=== PATIENT | male | born 1975 | race Caucasian/White ===

== ENCOUNTER 2018-03-21 19:31 | Emergency (ER) | payer OTHER ==
--- NOTE | 2018-03-21 21:03 | RAD ---
PORTABLE AP CHEST X-RAY: 03/21/2018 HISTORY: Pain to right lateral chest wall. Chest pain. COMPARISON: None available. FINDINGS: The cardiac silhouette is magnified by projection. The pulmonary vasculature is within normal limits . There are scattered calcified granuloma seen bilaterally. There is minimal linear atelectasis lola fadi scarring at the left lung base. The lungs are otherwise clear. The osseous structures are intac t. IMPRESSION: No acute cardiopulmonary process. POS: [facility]
== END 2018-03-21 21:29 | disposition home or self-care (01) ==
LOC: ERS 19:31
DX: R07.9 Chest pain, unspecified (principal); F31.9 Bipolar disorder, unspecified; Z87.891 Personal history of nicotine dependence; Z79.899 Other long term (current) drug therapy
CPT/HCPCS: 71045; 93005

== ENCOUNTER 2018-06-17 17:24 | Emergency (ER) | payer OTHER ==
[2018-06-17] MEDS ORDERED: Ketorolac Tromethamine 60 MG/2 ML VIAL ONE (18:08)
[2018-06-17] MEDS ORDERED: Acetaminophen 500 MG TAB ONE (18:09)
--- NOTE | 2018-06-17 18:50 | RAD ---
PORTABLE AP CHEST X-RAY 06/17/18 HISTORY: Back pain more localized to the left side over rib cage. Injury. COMPARISON: 03/21/18. FINDINGS: This exam is obtained in a shallow depth of inspiration and combination with portable technique of th e study accentuates the cardiac silhouette and bronchovascular markings. There is linear and patchy d ensity at the left lung base probably related to volume loss. The lungs otherwise appear clear. No pn eumothorax or pleural effusion is evident on this exam. No other interval change. IMPRESSION: Probable volume loss left lung base. Lungs are otherwise clear aside from evidence of prior granuloma tous disease. POS: [facility]
== END 2018-06-17 19:07 | disposition home or self-care (01) ==
LOC: ERS 17:24
DX: R07.81 Pleurodynia (principal); F17.220 Nicotine dependence, chewing tobacco, uncomplicated
CPT/HCPCS: 71045; 96372; J1885

== ENCOUNTER 2018-07-19 09:22 | Outpatient (CLI) | payer OTHER ==
[2018-07-19] MEDS ORDERED: Iopamidol 370 76% 100 ML VIAL ONE (12:39)
--- NOTE | 2018-07-19 12:50 | CT ---
TWO VIEW CHEST WITH CONTRAST: HISTORY: Fractured sternum, R91.8. Abnormal chest x-ray. COMPARISON: Radiograph from 06/17/2018. FINDINGS: There is a fracture of the body of the sternum with partial healing. The manubrium is intact. Heali ng left anterior 5th, 6th, and 7th, buckle fractures. Healing posterior left 11th rib fracture. No acute thoracic spine compression fracture. Calcified granuloma right upper lobe. Calcified granuloma right middle lobe. Lung bases are clear. No pericardial effusion. Calcified granuloma left lung base. Calcified granu vaishali left upper lobe. No mediastinal adenopathy. Limited evaluation of the upper abdomen is unremarkable. IMPRESSION: 1. Healing sternal body fracture. 2. Healing left-sided rib fractures. 3. No acute abnormality of the chest. POS: [facility]
== END 2018-07-19 09:23 | disposition home or self-care (01) ==
LOC: BICCT 09:22
PROVIDERS: ATTEND Family Medicine
DX: R91.8 Other nonspecific abnormal finding of lung field (principal); S22.22XD Fracture of body of sternum, subsequent encounter for fracture with routine healing; S22.42XD Multiple fractures of ribs, left side, subsequent encounter for fracture with routine healing
CPT/HCPCS: 71260

== ENCOUNTER 2019-02-06 18:05 | Emergency (ER) | payer OTHER, SELFPAY ==
[2019-02-06] MEDS ORDERED: Meclizine HCl 25 MG TAB ONE (20:27)
[2019-02-06 20:30] LABS: #Basophils 0.1 thou/uL (0.0-0.2); #Eosinphils 0.2 thou/uL (0.0-0.7); #Lymphocytes 1.9 thou/uL (1.20-3.40); #Monocytes 0.7 thou/uL (0.11-0.59); #Neutrophils 5.8 thou/uL (1.40-6.50); %Basophils 0.6 % (0.0-1.0); %Eosinophils 1.8 % (0.0-10.0); %Lymphocytes 21.7 % (21.0-51.0); %Neutrophils 67.8 % (42.0-75.0); Hemoglobin 13.9 g/dL (14.0-18.0); Mean Corpuscular Hemoglobin 27.3 pg (27.0-31.0); Mean Corpuscular Volume 82.7 fL (78.0-98.0); Mean Platelet Volume 9.4 fL (7.4-10.4); Platelet Count 254 thou/uL (130-400); RBC Distribution Width 14.9 % (11.5-14.5); Red Blood Cell (RBC) Count 5.09 mill/uL (4.70-6.10); White Blood Cell (WBC) Count 8.6 thou/uL (4.8-10.8)
[2019-02-06] MEDS ORDERED: Ibuprofen 800 MG TAB ONE (20:37)
[2019-02-06 20:47] LABS: Bacteria/HPF None Seen HPF (None Seen); Bilirubin Negative (Negative); Blood, Urine Negative (Negative); Clarity Clear (Clear); Glucose, Urine (Dipstick) Normal (Negative); Leukocyte Negative Leu/uL (Negative); Mucous/LPF 3+ LPF (<2+); Nitrite Negative (Negative); Protein, Urine (Dipstick) 30 mg/dL (Neg-Trace); RBC/HPF 0-3 HPF (0-3); Squamous Epithelial 0-3 HPF (0-3); WBC/HPF 0-3 HPF (0-3)
[2019-02-06 20:53] LABS: ALT (SGPT) 17 U/L (8-55); AST (SGOT) 22 U/L (5-34); Albumin 4.6 g/dL (3.5-5.0); Alkaline Phosphatase 78 U/L (40-150); Anion Gap 17 mmol/L (10-20); BUN (Urea Nitrogen) 14 mg/dL (8.9-20.6); Bilirubin, Total 0.3 mg/dL (0.2-1.2); CK (CPK) 82 U/L (30-200); Calc. Creatinine Clearance 0 mL/min (70-130); Calcium 9.8 mg/dL (7.8-10.44); Carbon Dioxide 19 mmol/L (22-29); Chloride 106 mmol/L (98-107); Estimated GFR-MDRD 70; Globulin 3.6 g/dL (2.4-3.5); Glucose 88 mg/dL (70-105); Potassium 3.8 mmol/L (3.5-5.1); Protein, Total 8.2 g/dL (6.0-8.3); Sodium 138 mmol/L (136-145)
[2019-02-06 20:54] LABS: Amphetamine Not Detected (NotDetected); Barbiturates Screen Not Detected (NotDetected); Benzodiazepine Screen Not Detected (NotDetected); Cocaine Metabolite Screen Not Detected (NotDetected); Medtox Control Line Valid? VALID (VALID); Medtox Reader # READER 1; Methadone Not Detected (NotDetected); Methamphetamine Not Detected (NotDetected); Opiate Screen Not Detected (NotDetected); Oxycodone Screen Not Detected (NotDetected); Phencyclidine (PCP) Not Detected (NotDetected); THC/Cannabinoid Screen Not Detected (NotDetected); Tricyclic Screen Not Detected (NotDetected)
--- NOTE | 2019-02-08 15:42 | EKG ---
Test Reason : Blood Pressure : / mmHG Vent. Rate : 067 BPM Atrial Rate : 067 BPM P-R Int : 180 ms QRS Dur : 088 ms QT Int : 366 ms P-R-T Axes : 041 011 025 degrees QTc Int : 386 ms Normal sinus rhythm Normal ECG Confirmed by PAN NOLEN, THERESA Adler ([id number]), movie editor TAWANA APNOTE ([id number]) on 02/08/2019 3:41:00 PM Referred By: Confirmed By:THERESA PERLA MD
== END 2019-02-06 22:05 | disposition home or self-care (01) ==
LOC: ERS 18:05
DX: R42 Dizziness and giddiness (principal); F17.210 Nicotine dependence, cigarettes, uncomplicated; Z87.01 Personal history of pneumonia (recurrent)
CPT/HCPCS: 80053; 80306; 81003; 81015; 82550; 85025; 93005; 96360; J8597

== ENCOUNTER 2019-03-21 16:27 | Emergency (ER) | payer SELFPAY ==
[2019-03-21 18:25] LABS: #Basophils 0.1 thou/uL (0.0-0.2); #Eosinphils 0.3 thou/uL (0.0-0.7); #Lymphocytes 1.9 thou/uL (1.20-3.40); #Monocytes 0.6 thou/uL (0.11-0.59); #Neutrophils 4.3 thou/uL (1.40-6.50); %Basophils 1.1 % (0.0-1.0); %Monocytes 8.2 % (0.0-10.0); %Neutrophils 59.7 % (42.0-75.0); Mean Corpuscular HGB CONC 33.9 g/dL (32.0-36.0); Mean Corpuscular Hemoglobin 28.2 pg (27.0-31.0); Mean Corpuscular Volume 83.2 fL (78.0-98.0); Mean Platelet Volume 9.4 fL (7.4-10.4); Platelet Count 234 thou/uL (130-400); Red Blood Cell (RBC) Count 5.31 mill/uL (4.70-6.10); White Blood Cell (WBC) Count 7.2 thou/uL (4.8-10.8)
[2019-03-21 18:46] LABS: ALT (SGPT) 21 U/L (8-55); AST (SGOT) 24 U/L (5-34); Albumin 4.6 g/dL (3.5-5.0); Alkaline Phosphatase 73 U/L (40-150); Anion Gap 13 mmol/L (10-20); BUN (Urea Nitrogen) 14 mg/dL (8.9-20.6); Bilirubin, Total 0.3 mg/dL (0.2-1.2); Calc. Creatinine Clearance 0 mL/min (70-130); Calcium 9.7 mg/dL (7.8-10.44); Carbon Dioxide 21 mmol/L (22-29); Chloride 107 mmol/L (98-107); Estimated GFR-MDRD 85; Globulin 3.5 g/dL (2.4-3.5); Glucose 101 mg/dL (70-105); Potassium 3.9 mmol/L (3.5-5.1); Protein, Total 8.1 g/dL (6.0-8.3); Sodium 137 mmol/L (136-145)
--- NOTE | 2019-03-21 19:43 | CT ---
CT BRAIN NONCONTRAST: DATE: 03/21/2019 HISTORY: 44-year-old male with vertigo and headache FINDINGS: There is no evidence of acute intra-axial or extra-axial hemorrhage. There is no midline shift or any other mass effect. There is no extra-axial fluid collection. The ventricles are normal in size and configuration. The tympanomastoid cavities, and the upper portions of the paranasal sinuses included in these images, are grossly clear. Calvarium is intact. IMPRESSION: Normal.
[2019-03-21] MEDS ORDERED: Meclizine HCl 25 MG TAB ONE (19:57)
== END 2019-03-21 20:03 | disposition home or self-care (01) ==
LOC: ERS 16:27
DX: R42 Dizziness and giddiness (principal); F17.220 Nicotine dependence, chewing tobacco, uncomplicated
CPT/HCPCS: 36415; 70450; 80053; 85025; 93005; J8597

== ENCOUNTER 2019-03-27 17:53 | Emergency (ER) | payer SELFPAY ==
[2019-03-27 22:18] LABS: #Basophils 0.1 thou/uL (0.0-0.2); #Eosinphils 0.3 thou/uL (0.0-0.7); #Lymphocytes 2.1 thou/uL (1.20-3.40); #Monocytes 0.6 thou/uL (0.11-0.59); #Neutrophils 4.3 thou/uL (1.40-6.50); %Basophils 1.1 % (0.0-1.0); %Eosinophils 4.6 % (0.0-10.0); %Lymphocytes 28.1 % (21.0-51.0); %Monocytes 8.5 % (0.0-10.0); %Neutrophils 57.7 % (42.0-75.0); Hemoglobin 14.8 g/dL (14.0-18.0); Mean Corpuscular HGB CONC 32.7 g/dL (32.0-36.0); Mean Corpuscular Hemoglobin 27.9 pg (27.0-31.0); Mean Corpuscular Volume 85.2 fL (78.0-98.0); Mean Platelet Volume 9.7 fL (7.4-10.4); Platelet Count 235 thou/uL (130-400); RBC Distribution Width 14.7 % (11.5-14.5); White Blood Cell (WBC) Count 7.4 thou/uL (4.8-10.8)
[2019-03-27 22:38] LABS: ALT (SGPT) 24 U/L (8-55); AST (SGOT) 20 U/L (5-34); Albumin 4.5 g/dL (3.5-5.0); Alkaline Phosphatase 78 U/L (40-150); Anion Gap 11 mmol/L (10-20); BUN (Urea Nitrogen) 9 mg/dL (8.9-20.6); Bilirubin, Total 0.4 mg/dL (0.2-1.2); CK (CPK) 78 U/L (30-200); Calc. Creatinine Clearance 0 mL/min (70-130); Calcium 9.4 mg/dL (7.8-10.44); Carbon Dioxide 24 mmol/L (22-29); Chloride 105 mmol/L (98-107); Estimated GFR-MDRD Greater than 90; Glucose 90 mg/dL (70-105); Potassium 3.8 mmol/L (3.5-5.1); Protein, Total 7.5 g/dL (6.0-8.3); Sodium 136 mmol/L (136-145)
[2019-03-27 23:11] LABS: Bilirubin Negative (Negative); Blood, Urine Negative (Negative); Clarity Clear (Clear); Glucose, Urine (Dipstick) Normal (Negative); Leukocyte Negative Leu/uL (Negative); Nitrite Negative (Negative); Protein, Urine (Dipstick) Negative (Neg-Trace); Urobilinogen Normal mg/dL (Less than 2)
--- NOTE | 2019-04-01 12:01 | EKG ---
Test Reason : Blood Pressure : / mmHG Vent. Rate : 066 BPM Atrial Rate : 066 BPM P-R Int : 208 ms QRS Dur : 088 ms QT Int : 384 ms P-R-T Axes : 041 025 021 degrees QTc Int : 402 ms Normal sinus rhythm Cannot rule out Anterior infarct , age undetermined Abnormal ECG Confirmed by CRISTHIAN NOLEN, ANNIA ([id number]), editor & co founder CONY OSMAN ([id number]) on 04/01/2019 12:00:34 PM Referred By: Confirmed By:ANNIA MORROW MD
== END 2019-03-28 00:17 | disposition home or self-care (01) ==
LOC: ERS 17:53
DX: R20.2 Paresthesia of skin (principal); F31.9 Bipolar disorder, unspecified; F17.220 Nicotine dependence, chewing tobacco, uncomplicated
CPT/HCPCS: 36415; 80053; 81003; 82140; 82550; 84443; 85025; 93005

== ENCOUNTER 2019-03-29 09:47 | Inpatient (IN) | payer SELFPAY ==
[2019-03-29] MEDS ORDERED: Ondansetron ODT 4 MG TAB SL PRN (14:18)
[2019-03-29] MEDS ORDERED: Ondansetron PF 4 MG/2 ML Vial IVP PRN (14:18)
[2019-03-29 14:46] VITALS: BMI 32.7
--- NOTE | 2019-03-29 17:41 | MRI ---
EXAM: MRI of the brain without and with contrast HISTORY: Bilateral hand feeling numb and working incorrectly. Slurred speech and ataxia. COMPARISON: None TECHNIQUE: Multiplanar multisequence MR images were obtained of the brain without and with IV contras t. FINDINGS: There are scattered foci of high T2/FLAIR signal in the subcortical and periventricular white matter. There is at least one high FLAIR focus within the corpus callosum. There are scattered foci (approximately 10-15) of enhancement in some of the lesions in the white matter. One of these areas o f enhancement in the left parietal lobe measures 11 mm in greatest dimension and has a leading edge of enhancement most likely secondary to an area of active demyelination. No restricted diffusion. No hydronephrosis. No extra-axial fluid collection or intracranial hemorrhage. The expected flow voids are present. Corpus callosum, pituitary, and craniocervical junction are within normal limits. The calvarium and overlying soft tissues are unremarkable. The paranasal sinuses and mastoid air cells are well aerated. IMPRESSION: Findings are most consistent with a demyelinating process such as multiple sclerosis. Enhancement sug gests active disease.
--- NOTE | 2019-03-29 17:49 | MRI ---
EXAM: MRI cervical spine without and with contrast HISTORY: Bilateral hands feeling and not working correctly for one month. Slurred speech and ataxia COMPARISON: None TECHNIQUE: Multiplanar multisequence MR images were obtained of the cervical spine without and with c ontrast. FINDINGS: The vertebral bodies and intervertebral discs demonstrate normal height and alignment without fractur e or subluxation. There is a well-circumscribed area of high T2 signal within the central cord at the C1 level measurin g 8 mm in size. This demonstrates enhancement. A focus of high T2 signal without enhancement is seen in the medulla. There are bilateral enhancing foci within the posterior fossa. The prevertebral soft tissues are unremarkable. No paraspinal soft tissue abnormality is seen. C2/3: No significant posterior bulge or protrusion. No posterior facet arthrosis. No central canal stenosis. No neural foraminal stenosis. C3/4: No significant posterior bulge or protrusion. No posterior facet arthrosis. No central canal stenosis. No neural foraminal stenosis. C4/5: A minimal generalized concentric disc bulge is seen. No posterior facet arthrosis. Mild centr al canal stenosis. No neural foraminal stenosis. C5/6: A minimal generalized concentric disc bulge is seen. No posterior facet arthrosis. Moderate c entral canal stenosis. No neural foraminal stenosis. C6/7: No significant posterior bulge or protrusion. No posterior facet arthrosis. No central canal stenosis. No neural foraminal stenosis. C7/T1: No significant posterior bulge or protrusion. No posterior facet arthrosis. No central canal stenosis. No neural foraminal stenosis. IMPRESSION: Enhancing focus within the cervical cord as well as the enhancing foci in the brain are most likely s econdary to a demyelinating process such as multiple sclerosis.
[2019-03-29] MEDS: Acetaminophen 325 MG TAB PO PRN (20:09)
--- NOTE | 2019-03-29 22:46 | HP ---
CHIEF COMPLAINT: Numbness in his hands, abdomen, and lower extremities. Vertigo and ataxia. HISTORY OF PRESENT ILLNESS: The patient is a 44-year-old male, who came to the emergency room couple of times before for the same problem and since the emergency room doctor was not able to help him, he gets admitted to the hospital and we will do some testing on him while in the hospital and he can see a neurologist. Approximately 2 months ago, he started having some issues after he had some teeth pulled out. He started having some vertigo. He was placed on meclizine and was seen by primary care physician and then, he came to the emergency room and he had some treatments and was sent out. Then, finally he had additional couple of visits and during the last visit, decision was made by the emergency room for further evaluation of his problem by visit with neurologist and doing MRI on his brain while in the hospital. He denies any chest pain. He denies any fever or chills. He complains about numbness in his both hands, more on the right side than on the left side, numbness in the chest and abdomen across and numbness in his legs below the knees mainly. Also, he noticed some weakness in his both upper extremities, but no weakness in the lower extremities. He denies any chest pain. He denies any shortness of breath, but he noticed that he has to take deeper breaths from time to time. PAST MEDICAL HISTORY: Positive for; 1. Vertigo. 2. Pneumonia. 3. Back fracture 10 years ago. PAST SURGICAL HISTORY: Back surgery x4. SOCIAL HISTORY: He smokes cigarettes, it varies how much he smokes from day-to-day. He denies any alcohol use. 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 Apparently, he graduated from the program and now he is working in this place. FAMILY HISTORY: Father is healthy. Mother had some kind of rare form of Parkinson disease and she at the age of 52. ALLERGIES: NONE. MEDICATIONS: None. REVIEW OF SYSTEMS: CONSTITUTIONAL: No fever. No chills. EYES: No eye pain or eye discharge. ENT: No epistaxis. No stridor. CARDIOVASCULAR: No chest pain. No syncope. RESPIRATORY: No shortness of breath or cyanosis. GI: No diarrhea. No constipation. MUSCULOSKELETAL: Weakness in the upper extremities. SKIN: Negative for rash or pruritus. NEUROLOGICAL: No headaches. Numbness and paresthesias in hands, feet, abdomen, and chest. HEME/LYMPHATIC: Negative for easy bruising or clotting abnormalities. PHYSICAL EXAMINATION: VITAL SIGNS: Blood pressure is 142/94, pulse is 67, respiratory rate is 14, O2 saturation is 98% on room air, temperature is 98.1. HEENT: His head is atraumatic, normocephalic. Eyes, PERRLA. Sclerae are nonicteric. Oral mucosa is moist. NECK: Supple. LUNGS: Clear. HEART: S1 and S2 normal. No S3. No S4. No any murmur. ABDOMEN: Soft, nontender, nondistended. EXTREMITIES: No clubbing, cyanosis, or edema. NEUROLOGICAL: He has normal cranial nerve function. He has horizontal nystagmus, much more significant to the right than to the left. He has double vision looking to the left. His Babinski sign is negative. Apparently, Romberg's sign was positive in the emergency room evaluation. Sensation is altered in the in both hands, both feet, abdomen, and chest. DIAGNOSTIC DATA: C-reactive protein is less than 0.5. IMPRESSION: 1. Ataxia. 2. Generalized paresthesia of unclear etiology. 3. History of pneumonia. 4. Vertigo. PLAN: Admission for observation. Condition is fair. Activity is bedrest and bathroom privileges. IV Hep-Lock. MRI of the brain. Neurology consult. DVT prophylaxis with SCDs and Lovenox. Job ID: [id number]
[2019-03-30 06:26] LABS: #Basophils 0.1 thou/uL (0.0-0.2); #Eosinphils 0.3 thou/uL (0.0-0.7); #Lymphocytes 1.7 thou/uL (1.20-3.40); #Monocytes 0.5 thou/uL (0.11-0.59); #Neutrophils 3.4 thou/uL (1.40-6.50); %Basophils 1.2 % (0.0-1.0); %Eosinophils 4.4 % (0.0-10.0); %Lymphocytes 28.3 % (21.0-51.0); %Monocytes 8.4 % (0.0-10.0); %Neutrophils 57.7 % (42.0-75.0); Hemoglobin 14.1 g/dL (14.0-18.0); Mean Corpuscular HGB CONC 33.8 g/dL (32.0-36.0); Mean Corpuscular Hemoglobin 28.5 pg (27.0-31.0); Mean Corpuscular Volume 84.3 fL (78.0-98.0); Mean Platelet Volume 9.4 fL (7.4-10.4); Platelet Count 221 thou/uL (130-400); RBC Distribution Width 14.7 % (11.5-14.5); Red Blood Cell (RBC) Count 4.93 mill/uL (4.70-6.10); White Blood Cell (WBC) Count 5.8 thou/uL (4.8-10.8)
[2019-03-30 06:48] LABS: ALT (SGPT) 20 U/L (8-55); AST (SGOT) 16 U/L (5-34); Albumin 4.1 g/dL (3.5-5.0); Alkaline Phosphatase 72 U/L (40-150); Anion Gap 8 mmol/L (10-20); BUN (Urea Nitrogen) 11 mg/dL (8.9-20.6); Bilirubin, Total 0.6 mg/dL (0.2-1.2); Calc. Creatinine Clearance 176 mL/min (70-130); Carbon Dioxide 27 mmol/L (22-29); Chloride 105 mmol/L (98-107); Estimated GFR-MDRD 83; Globulin 2.8 g/dL (2.4-3.5); Glucose 91 mg/dL (70-105); Potassium 3.7 mmol/L (3.5-5.1); Protein, Total 6.9 g/dL (6.0-8.3); Sodium 136 mmol/L (136-145)
[2019-03-30] MEDS: Enoxaparin Sodium 40 MG/0.4 ML SYRINGE SC SCH (08:32)
--- NOTE | 2019-03-30 14:54 | PRG ---
DATE OF SERVICE: 03/30/2019 SUBJECTIVE: The patient is seen and examined at bedside. He still has the same complaints what he had yesterday with numbness in both hands, legs and chest and abdomen. OBJECTIVE: VITAL SIGNS: Blood pressure is 129/89, pulse is 74, temperature is 98.1, respirations 16, O2 saturation is 96% on room air. HEENT: His head is atraumatic and normocephalic. Eyes are PERRLA. Sclerae are nonicteric. Oral mucosa is moist. NECK: Supple. LUNGS: Clear. HEART: S1, S2 normal. ABDOMEN: Soft, obese, nontender, nondistended. EXTREMITIES: No clubbing, cyanosis, or edema. NEUROLOGICAL: He has horizontal nystagmus mostly to the right, but he has some motor deficits in the upper extremities about 4/6, similar bilaterally and decreased sensation in the hands, feet, abdomen, and chest. LABORATORY DATA: Labs showed white count of 5.8, hemoglobin 14.1, hematocrit 41.6, platelet count is 221,000. Sodium of 136, potassium 3.7, chloride 105, CO2 of 27, BUN 11, creatinine 0.99, and the rest of chemistry is within normal limits. C-reactive protein is less than 0.50. MRI of the cervical spine showed an enhancing focus within the cervical cord as well as the enhancing foci in the brain, most likely secondary to a demyelinating process such as multiple sclerosis and brain MRI showed a scattered foci in subcortical and periventricular white matter which is most likely consistent with a demyelinating process. IMPRESSION: Demyelinating disease of the central nervous system and will most likely multiple sclerosis. The case was discussed with Dr. Cline who recommends 1 g of Solu-Medrol IV piggyback daily x2 days then taper dose of prednisone over the period of 8 days and follow up with him in his office in a week, so we will order this treatment today. Start him on that and continue DVT prophylaxis and he should be able to go home tomorrow after the second dose of steroids. Job ID: [id number]
[2019-03-30] MEDS ORDERED: methylPREDNISolone Sod Succ/PF 125 MG/2 ML VIAL IVP SCH (15:30)
[2019-03-30] MEDS: clonazePAM 0.5 MG TAB PO PRN ×2 (15:37→21:51)
[2019-03-30] MEDS: methylPREDNISolone Sod Succ 1 GM in Sodium Chloride 0.9% 250 ML 250 ML IVPB SCH (16:16)
[2019-03-30] MEDS: Acetaminophen 325 MG TAB PO PRN (21:55)
--- NOTE | 2019-03-30 23:58 | CON ---
DATE OF CONSULTATION: 03/30/2019 CONSULTING PHYSICIAN: Hospitalist Service. IMPRESSION: Multiple sclerosis. PLAN: 1. IV Solu-Medrol tomorrow. 2. Steroid taper with prednisone 60 for 2 days, 40 for 2 days, 20 for 2 days, and 10 for 2 days. 3. Office followup to get him established for treatment with [facility]. HISTORY OF PRESENT ILLNESS: Mr. Manzo is a 44-year-old man, who came in with complaints of diffuse numbness involving the entire trunk and extremities. He reports that his hands feel very fat and there is somewhat of an unpleasant nature to it. He still able to walk and uses extremities. He denies any facial involvement. His MRI showed multiplicity of periventricular lesions. His MRI of the cervical spine showed evidence of a lower medulla and central cord lesion in the upper cervical spine. There is some enhancement of the intracranial lesions as well. He has been started on Solu-Medrol. In the past, he reports he had an episode of transient left leg weakness and numbness. This lasted about 3 weeks and cleared up on its own. PAST MEDICAL HISTORY: Otherwise negative. ALLERGIES: NONE. SOCIAL HISTORY: Unremarkable. He is working as a counselor for rehab program. FAMILY HISTORY: Positive for multi-system atrophy in his mother. REVIEW OF SYSTEMS: Ten-system review of systems is otherwise negative. PHYSICAL EXAMINATION: GENERAL: He is a well-nourished, middle-aged man, in no acute distress. VITAL SIGNS: Have been stable. He is afebrile. HEENT: Pupils are equal. Conjunctivae are clear. Oropharynx is clear. Cranium, normocephalic and atraumatic. NECK: Supple. EXTREMITIES: No cyanosis, clubbing, or edema. NEUROLOGIC: He is alert and cooperative. His speech is fluent and clear. Cranial nerves appear to be intact. Motor exam shows good bathing suit maker strength bilaterally. He has no tremor or dysmetria. He can walk independently. Sensory testing subjectively decreased over his entire body up to the upper chest. IMAGING: Reviewed. SUMMARY: A middle-aged man who likely has had multiple sclerosis for a number of years and has been relatively asymptomatic other than one prior attack. He has been started on steroids and we will plan a long-term management plan through the office. Job ID: [id number]
[2019-03-31] MEDS ORDERED: methylPREDNISolone Sod Succ/PF 125 MG/2 ML VIAL IVP SCH ×2 (09:00→15:00)
[2019-03-31] MEDS: Acetaminophen 325 MG TAB PO PRN ×2 (10:05→15:29)
[2019-03-31] MEDS: Enoxaparin Sodium 40 MG/0.4 ML SYRINGE SC SCH (10:06)
[2019-03-31] MEDS: clonazePAM 0.5 MG TAB PO PRN (15:29)
[2019-03-31] MEDS: methylPREDNISolone Sod Succ 1 GM in Sodium Chloride 0.9% 250 ML 250 ML IVPB SCH (15:30)
[2019-03-31 15:55] VITALS: BP 128/82; TEMP 97.8
--- NOTE | 2019-03-31 23:02 | DIS ---
DATE OF ADMISSION: 03/29/2019 DATE OF DISCHARGE: 03/31/2019 CONSULTANTS: Shaun Cline MD, Neurology Service. FINAL DIAGNOSES: 1. Demyelinating disease most likely multiple sclerosis. 2. History of pneumonia. 3. Anxiety. HOSPITAL COURSE: The patient is a 44-year-old male, who was admitted to the hospital with complaints of numbness in both hands, abdomen, chest, and lower extremities along with vertigo and ataxia. Apparently, this is going on for sometime. He came to the emergency room couple of times before and this time he got admitted for further evaluation. While in the emergency room, there was no any specific working diagnosis. He got admitted to the hospital, previously had CT done on his brain but this did not really show anything specific, so he got admitted. He had MRI of the brain done, which showed multiple foci of demyelination suspicious for multiple sclerosis. The patient was seen by neurologist, Dr. Cline, who recommended high dose of steroids. He received 1 g of methylprednisolone IV piggyback yesterday and the dose was repeated today and he is going to be discharged home on prednisone taper dose over the 8 days. He will follow up with Dr. Cline in 1 week and he will discuss with him further possible treatments. Also, we are going to give him prescriptions for clonazepam for his anxiety. He is going to use half a tablet of 1 mg tablets every 4-6 hours p.r.n. as needed. The patient is discharged in good condition. He was seen and examined before he was discharged. TIME SPENT: Discharge time is less than 30 minutes. Job ID: [id number]
== END 2019-03-31 17:49 | disposition home or self-care (01) | DRG 60 ==
LOC: ERS 09:47 → ERHOLD 11:48 → 2SE 14:29
PROVIDERS: ADMIT Internal Medicine; ATTEND Internal Medicine
DX: G35 Multiple sclerosis (principal); F17.210 Nicotine dependence, cigarettes, uncomplicated; H55.00 Unspecified nystagmus; R42 Dizziness and giddiness; F41.9 Anxiety disorder, unspecified
CPT/HCPCS: 36415; 36416; 70553; 72156; 80053; 85025; 86140; 90471; 90732; 99284; G0009; J1650; J2930; J7050; Q0162

== ENCOUNTER 2020-02-12 11:57 | Emergency (ER) | payer OTHER | END 2020-02-12 12:00 | disposition left against medical advice (07) | LOC: ERS 11:57 | DX: Z53.21 Procedure and treatment not carried out due to patient leaving prior to being seen by health care provider (principal) ==